=== PATIENT | male | born 1980 | race Caucasian/White ===

== ENCOUNTER → 2021-10-12 | Outpatient (CLI) | payer BC | LOC: LAB 10:11 | DX: U07.1 COVID-19 (principal) | CPT/HCPCS: U0002 ==

== ENCOUNTER → 2021-11-18 | Outpatient (CLI) | payer BC | LOC: KOH-I 15:28 | DX: R42 Dizziness and giddiness (principal); I65.23 Occlusion and stenosis of bilateral carotid arteries | CPT/HCPCS: 93880 ==

== ENCOUNTER 2021-11-25 09:37 | Observation (INO) | payer BC ==
[~2021-11-25] VITALS: Ht 193 cm; Wt 142.9 kg
[2021-11-25 10:38] LABS: HEMOGLOBIN 17.1 gm/dl (14.0-17.5); RED BLOOD COUNT 5.65 M/UL (4.20-5.50); WHITE BLOOD COUNT 10.8 K/UL (4.5-11.0)
[2021-11-25 11:25] LABS: BUN/CREATININE RATIO 19 (0-10)
[2021-11-25] MEDS ORDERED: METFORMIN HCL1000 MG PO (17:33)
[2021-11-25] MEDS ORDERED: LISINOPRIL10 MG PO (17:33)
[2021-11-25] MEDS ORDERED: LISINOPRIL-HCT1 EACH PO (17:33)
[2021-11-25] MEDS ORDERED: HYDROCODON-ACE1 EAC6 PO (17:34)
[2021-11-25] MEDS ORDERED: GLIPIZIDE10 MG PO (17:34)
[2021-11-25] MEDS ORDERED: FEXOFENADINE H180 MG PO (17:35)
[2021-11-25] MEDS ORDERED: OMEPRAZOLE20 MG PO (17:35)
[2021-11-25] MEDS ORDERED: FARXIGA5 MG PO (17:36)
[2021-11-26 07:32] LABS: HEMOGLOBIN 15.4 gm/dl (14.0-17.5); RED BLOOD COUNT 5.1 M/UL (4.20-5.50)
[2021-11-26 07:39] LABS: WHITE BLOOD COUNT 7.2 K/UL (4.5-11.0)
[2021-11-26 07:47] LABS: BUN/CREATININE RATIO 16 (0-10)
[2021-11-26] MEDS ORDERED: LOPRESSOR 25 MG25 MG PO ×2 (16:00)
[2021-11-26] MEDS ORDERED: ZESTRIL2.5 MG PO (16:00)
[2021-11-26] MEDS ORDERED: MECLIZINE HCL25 MG PO (16:00)
[2021-11-26] MEDS ORDERED: CRESTOR20 MG PO (16:07)
[2021-11-26] MEDS ORDERED: ASPIRIN EC81 MG PO (16:07)
== END 2021-11-26 17:20 | disposition home or self-care (01) ==
LOC: ER1 09:37 → CDU 14:20 → MED SURG 4 14:20 → CDU 14:20 → MED SURG 4 16:35
PROVIDERS: Family Medicine; Physician Assistant; ADMIT Internal Medicine Infectious Disease
DX: R42 Dizziness and giddiness (principal); R07.89 Other chest pain; R06.02 Shortness of breath; I10 Essential (primary) hypertension; E11.9 Type 2 diabetes mellitus without complications; K21.9 Gastro-esophageal reflux disease without esophagitis; E78.00 Pure hypercholesterolemia, unspecified; E78.1 Pure hyperglyceridemia; R51.9 Headache, unspecified; F17.220 Nicotine dependence, chewing tobacco, uncomplicated; E66.3 Overweight; Z68.38 Body mass index [BMI] 38.0-38.9, adult; Z87.442 Personal history of urinary calculi; Z79.84 Long term (current) use of oral hypoglycemic drugs; Z79.899 Other long term (current) drug therapy
CPT/HCPCS: ECHO; 70496; 70498; 71045; 78452; 80048; 80053; 80061; 82550; 82553; 82962; 84484; 85025; 85379; 93005; 93017; 93270; 93306; 96372; 99285; A9502; G0378; J1650; Q9967